=== PATIENT | male | born 1985 | race Caucasian/White ===

== ENCOUNTER 2019-04-08 20:11 | Emergency (ER) | payer OTHER ==
--- NOTE | 2019-04-08 20:27 | PDOC ---
Rapid Medical Evaluation Time Seen by Provider: 04/08/19 20:22 Medical Evaluation: 04/08/19 20:25 CC: right upper leg pain PE: FAROM. No focal findings. Orders: nothing Patient will proceed to ER for continued evaluation. Discharge Disposition - Diagnosis Hamstring injury - Referrals - Patient Instructions - Post Discharge Activity
[2019-04-08 20:42] VITALS: BP 124/88; BMI 27.3
--- NOTE | 2019-04-08 21:24 | PDOC ---
History of Present Illness - General Chief Complaint: Pain Stated Complaint: RT LEG PAIN Time Seen by Provider: 04/08/19 20:22 - History of Present Illness Initial Comments: 04/08/19 21:22 34-year-old male without comorbidities presents for evaluation of right hamstring and buttocks pain x2 days which he injured while running. Past History - Past Medical History CVA: No COPD: No - Psycho Social/Smoking Cessation Hx Smoking History: Never smoked Have you smoked in the past 12 months: No Information on smoking cessation initiated: No Hx Alcohol Use: No Drug/Substance Use Hx: No Review of Systems - Review of Systems Musculoskeletal: Yes: Muscle Pain *Physical Exam - Vital Signs Last Vital Signs Temp Pulse Resp BP Pulse Ox 124/88 100 04/08/19 20:27 04/08/19 20:27 - Physical Exam Comments: 04/08/19 21:22 Right lower extremity skin color and temperature normal. Range of motion is limited in hip extension and flexion. Tenderness at the initial tuberosity in the belly of the hamstring muscles. Thigh is otherwise floppy and nontender as well as soft, calf soft floppy and nontender. No gross sensorimotor deficits neurovascular intact. ED Treatment Course - RADIOLOGY Radiology Studies Ordered: Category Date Time Status PELVIS [RAD] Stat Radiology 04/08/19 21:09 Taken Medical Decision Making - Medical Decision Making 04/08/19 21:23 No fracture of the ischial tuberosity on radiograph today. Hamstring strain follow-up with orthopedic surgery Discharge - Discharge Information Problems reviewed: Yes Clinical Impression/Diagnosis: Hamstring injury Condition: Stable Disposition: HOME - Admission No - Follow up/Referral Referrals: Cash Oro DO [Staff Physician] - - Patient Discharge Instructions Additional Instructions: Tylenol and Motrin for pain. I given your prescription for a muscle relaxer please take that medication as directed. Return to the emergency room for worsening symptoms. Without fail, please follow-up with orthopedic surgery in 1 to 2 days for further evaluation and treatment options. - Post Discharge Activity
== END 2019-04-08 21:28 | disposition home or self-care (01) ==
LOC: JERFT 20:11
DX: S76.312A Strain of muscle, fascia and tendon of the posterior muscle group at thigh level, left thigh, initial encounter (principal); X50.9XXA Other and unspecified overexertion or strenuous movements or postures, initial encounter; Y93.02 Activity, running; Y92.89 Other specified places as the place of occurrence of the external cause; Y99.8 Other external cause status
CPT/HCPCS: 72170-TC-FY; 99281-25